=== PATIENT | male | born 2005 | race Two or more races ===

== ENCOUNTER 2024-10-18 01:40 | Emergency (ER) | payer MEDICAID, SELFPAY ==
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
[2024-10-18 01:48] VITALS: BP 101/83; PULSE 143; RESP 18; TEMP 36.3; O2SAT 96
[2024-10-18 02:01] VITALS: BMI 24.2
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
--- NOTE | 2024-10-18 02:34 | EKG_ITS ---
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
--- NOTE | 2024-10-18 03:20 | PRELIM_ITS ---
CT scan of the chest, abdomen and pelvis without intravenous contrast (axial sections with sagittal and coronal reformats) October 18, 2024 0253 hours Clinical History: Fall. Comparison: No prior study is available for comparison. Findings: The lungs are clear. There is no pleural effusion or pneumothorax. The aorta is unremarkable on this noncontrast study. There is no mediastinal collection. There is no pericardial effusion. The liver, gallbladder, spleen, pancreas, adrenals and kidneys are unremarkable on this noncontrast study. The bowel is unremarkable. The urinary bladder is unremarkable. There is no free fluid or free air. No fracture is identified. Impression: No visceral or bony injury to the chest, abdomen or pelvis. Report Electronically Signed By: Paxton Roland 10/18/2024 3:19:54 AM [EST]
[2024-10-18 03:22] LABS: Basophils # (Auto) 0.1 Thou/mm3 (0.0-0.2); Basophils % (Auto) 0 % (0-2.5); Eosinophils # (Auto) 0.1 Thou/mm3 (0.0-0.5); Eosinophils % (Auto) 1 % (0-10); Hematocrit 41.2 % (41.0-53.0); Hemoglobin 14.8 g/dL (13.5-16.0); Immature Granulocytes Auto 0.06 Thou/mm3 (0.00-0.00); Lymphocytes # (Auto) 1.3 Thou/mm3 (1.0-4.8); Lymphocytes % (Auto) 9 % (10-50); Mean Corpuscular HGB Conc 35.9 g/dl (31.0-37.0); Mean Corpuscular Hemoglobin 27.6 pg (25.0-35.0); Mean Corpuscular Volume 77 fL (80-100); Monocytes # (Auto) 0.7 Thou/mm3 (0.0-0.8); Monocytes % (Auto) 5 % (0-12); Neutrophils # (Auto) 12.4 Thou/mm3 (1.8-7.7); Neutrophils % (Auto) 85 % (37-80); Nucleated Red Blood Cell # 0.00 Thou/mm3 (0.00-0.00); Nucleated Red Blood Cell % 0 /100 WBC (0); Platelet Count 275 Thou/mm3 (140-440); RDW Standard Deviation 37.7 fL (35.1-43.9); Red Blood Count 5.37 Miln/mm3 (4.50-5.90); White Blood Count 14.6 Thou/mm3 (4.5-11.0)
[2024-10-18] MEDS: KETOROLAC INJ 30 MG/ML VIAL IVP (03:32)
[2024-10-18 03:33] LABS: Alcohol, Blood Medical 100.5 mg/dL (0-10.0); Anion Gap 13 (7-16); BUN/Creatinine Ratio 13 Ratio (12-20); Blood Urea Nitrogen 14 mg/dL (9-23); Calcium 9.1 mg/dL (8.3-10.6); Carbon Dioxide 23.4 mMol/L (20.0-31.0); Chloride 106 mMol/L (98-107); Creatinine (Component) 1.1 mg/dL (0.6-1.3); Estimated Creatinine Clearance 96.7 mL/min (>60); Glucose 117 mg/dL (74-106); Magnesium 2.2 mg/dL (1.6-2.6); Osmolality,Calculated 284 (275-295); Potassium 3.9 mMol/L (3.4-5.1); Sodium 142 mMol/L (136-145); eGFR > 60 See Note
[2024-10-18] MEDS: ONDANSETRON INJ 2 MG/ML INJ 2 ML 4 MG IVP (03:33)
[2024-10-18] MEDS: SODIUM CHLORIDE 0.9% 1000 ML 1,000 ML 999 ML IV (03:34)
[2024-10-18 03:40] LABS: INR 1.1 (0.9-1.3); Partial Thromboplastin Time 24.8 Seconds (22.0-36.0); Prothrombin Time 11.5 Seconds (9.0-12.2)
--- NOTE | 2024-10-18 03:49 | PRELIM_ITS ---
CT scan of the cervical spine without intravenous contrast (axial sections with sagittal and coronal reformats). October 18, 2024 0247 hours Clinical History: Trauma Comparison: None Findings: There is no fracture, traumatic subluxation or other acute osseous abnormality of the cervical spine. There is straightening of the cervical spine curvature with loss of normal cervical lordosis. There is no prevertebral soft tissue swelling. Impression: No acute osseous abnormality abnormal of the cervical spine. Straightening of the cervical spine may indicate muscle spasm. Report Electronically Signed By: Devyn Montez 10/18/2024 3:49:07 AM [EST]
--- NOTE | 2024-10-18 04:00 | PRELIM_ITS ---
CT scan of the head without intravenous contrast (axial sections with sagittal and coronal reformats). October 18, 2024 0247 hours Clinical History: Trauma Comparison: None Findings: There is no intracranial hemorrhage, extra-axial collection, mass, mass-effect or midline shift. There is good woods-white differentiation. There is no CT evidence of acute large vascular territorial infarct. Ventricles are not enlarged or effaced. There is trace paranasal sinus fluid/mucosal thickening. The bony calvarium is intact. The tympanomastoid cavities are clear. Impression: No intracranial hemorrhage, mass-effect or midline shift. No CT evidence of acute large vascular territorial infarct. Report Electronically Signed By: Devyn Montez 10/18/2024 3:59:51 AM [EST]
--- NOTE | 2024-10-18 04:06 | PRELIM_ITS ---
CT maxillofacial without intravenous contrast (axial sections with sagittal and coronal reformats). October 18, 2024 0247 hours Clinical History: Trauma Comparison: None Findings: There is no fracture, dislocation or other acute osseous abnormality of the face. Orbits are intact. There is superficial soft tissue contusion to the left cheek. There is trace paranasal sinus fluid/mucosal thickening. There is mucosal thickening of the left nasal turbinates. Impression: No acute osseous abnormality of the face. Report Electronically Signed By: Devyn Montez 10/18/2024 4:06:31 AM [EST]
== END 2024-10-18 05:05 ==
PROVIDERS: Emergency Provider Emergency Medicine
DX: Z02.89 Encounter for other administrative examinations (principal); S09.90XA Unspecified injury of head, initial encounter; S30.1XXA Contusion of abdominal wall, initial encounter; V89.2XXA Person injured in unspecified motor-vehicle accident, traffic, initial encounter
CPT/HCPCS: 36415; 70450; 70486; 71250; 72125; 74176; 80048; 80307; 80320; 83735; 85025; 85610; 85730; 96361; 96374; 96375; 99283; J1885; J2405; J7030; G0480